=== PATIENT | male | born 2000 | race Asian ===

== ENCOUNTER 2019-02-21 14:02 | Emergency (ER) | payer MEDICAID ==
[~2019-02-21] VITALS: Ht 175.3 cm; Wt 70.3 kg
[2019-02-21 14:15] VITALS: BP_SYST 118
[2019-02-21 16:57] LABS: BASOPHILS # (AUTO) 0.1 K/uL (0.0-0.2); BASOPHILS % (AUTO) 0.5 % (0.0-2.0); EOSINOPHILS # (AUTO) 0.2 K/uL (0.0-0.4); EOSINOPHILS % (AUTO) 1.2 % (0.0-4.0); HEMATOCRIT 43.3 % (36-54); HEMOGLOBIN 14.5 g/dL (14.0-18.0); LYMPHOCYTES # (AUTO) 2.2 K/uL (1.0-5.5); LYMPHOCYTES % (AUTO) 13.1 % (20.5-51.5); MEAN CORPUSCULAR HEMOGLOBIN 31 pg (27-31); MEAN CORPUSCULAR HGB CONC 33 % (32-36); MEAN CORPUSCULAR VOLUME 93 fL (79.0-98.0); MONOCYTES # (AUTO) 1.8 K/uL (0.0-1.0); MONOCYTES % (AUTO) 10.3 % (1.7-9.3); NEUTROPHILS # (AUTO) 12.8 K/uL (1.8-7.7); NEUTROPHILS % (AUTO) 74.9 % (40.0-70.0); PLATELET COUNT (AUTO) 318 K/uL (130-430); RED BLOOD CELL COUNT(AUTO) 4.67 MIL/uL (4.2-6.2); RED CELL DISTRIBUTION WIDTH 12.8 % (9.0-15.0); WHITE BLOOD COUNT (AUTO) 17.1 K/uL (4.5-11.0)
--- NOTE | 2019-02-21 17:00 | NUR ---
Placed in room 8 . Placed on cardiac cath lab technologist, blood pressure machine and pulse oximeter. To gown for exam. Side rails up. Assumed care.
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
--- NOTE | 2019-02-21 17:15 | NUR ---
ER at bedside examining patient.
[2019-02-21 17:28] LABS: CALCIUM 9.2 mg/dL (8.4-11.0); CREATININE 1.13 mg/dL (0.55-1.30); POTASSIUM 4.1 mmol/L (3.5-5.1)
[2019-02-21 17:33] LABS: TOTAL BILIRUBIN 1.3 mg/dL (0.0-1.0)
[2019-02-21] MEDS ORDERED: LEVOFLOXACIN 500 MG/D5W 100 ML IV ONE (17:45)
[2019-02-21 17:51] LABS: PROTHROMBIN TIME 10.4 SECS (9.5-12.5)
--- NOTE | 2019-02-21 18:18 | NUR ---
# 20 gauge angiocath placed to right hand. Use of asceptic technique. Opsite placed over site. Blood return noted. Flushed with 10 cc of normal saline. No evidence of infiltration noted. Patient tolerated well.
--- NOTE | 2019-02-21 18:36 | NUR ---
Information received from Helen, nurse case manager. Patient information given. Will continue to follow up regarding bed assignment and transfer.
--- NOTE | 2019-02-21 19:05 | NUR ---
Report given to VENU Lynch.
[2019-02-21 20:16] LABS: BILIRUBIN,URINE 1+ (NEGATIVE); BLOOD, URINE NEGATIVE (NEGATIVE); CLARITY/URINE CLEAR (CLEAR); COLOR,URINE YELLOW (YELLOW); GLUCOSE,URINE NEGATIVE (NEGATIVE); KETONES,URINE 1+ (NEGATIVE); LEUKOCYTE ESTERASE ,URINE NEGATIVE (NEGATIVE); NITRITE, URINE NEGATIVE (NEGATIVE); PROTEIN URINE TRACE (NEGATIVE); UROBILINOGEN,URINE 0.2 (0.2-1.0)
[2019-02-21 20:46] LABS: BACTERIA,URINE None Seen /HPF (None Seen); MUCUS,URINE 1+ /LPF (None Seen); WBC,URINE 0-3 /HPF (0-3)
--- NOTE | 2019-02-21 20:57 | NUR ---
CM rn field case manager called and gave a bed 214 bed going to [facility]
--- NOTE | 2019-02-21 21:10 | NUR ---
S/W Juan José accepting Nurse at [facility], Pt going to Room 214 bed 1. Report given
--- NOTE | 2019-02-21 22:20 | NUR ---
VSS no s/s of acute distress. Resting on gurney rails up
[2019-02-21 23:23] VITALS: BP_SYST 118
--- NOTE | 2019-02-21 23:23 | NUR ---
Patient to be transferred to [facility] / room 214 Bed 1. Is being transferred due to higher level of care. Receiving facility has accepting physician and available space. ER physician has signed transfer form. Patient or responsible alliance party has agreed to transfer and signed form. Patient belongings inventoried and will be sent with patient. Copy of nursing notes, lab reports, EKG, Physicians Orders and X-rays to be sent with patient. Report called to Wolsey at receiving facility. [facility] ambulance service has been called for transfer.
== END 2019-02-21 23:23 | disposition short-term general hospital (02) ==
LOC: SED 14:02
DX: S27.2XXA Traumatic hemopneumothorax, initial encounter (principal); W19.XXXA Unspecified fall, initial encounter; Y93.K1 Activity, walking an animal; Y92.89 Other specified places as the place of occurrence of the external cause; Y99.8 Other external cause status
CPT/HCPCS: 36415; 71045; 71100; 80053; 81000; 83880; 84484; 85025; 85610; 87040; 93005; 96365; 99285; J1956

== ENCOUNTER 2021-04-16 17:41 | Emergency (ER) | payer MEDICAID ==
[~2021-04-16] VITALS: Ht 175.3 cm; Wt 65.8 kg
[2021-04-16 17:41] VITALS: BP_SYST 130
--- NOTE | 2021-04-16 17:41 | NUR ---
BROUGHT BACK TO BED #6 AND TRIAGED. REPORT GIVEN TO BECCA
--- NOTE | 2021-04-16 17:55 | NUR ---
ER Dr. KERN at bedside examining patient.
--- NOTE | 2021-04-16 18:18 | NUR ---
PT BIB MOM, C/O PAIN TO RIGHT HAND, REDNESS, SWELLING. PT STATED " I GOT BIT BY A DOG". PT IS A&OX4, AMBULATORY.
[2021-04-16 18:36] LABS: ANION GAP 8 (5-15); CALCIUM 9.3 mg/dL (8.4-11.0); CHLORIDE 102 mmol/L (98-107); CREATININE 0.89 mg/dL (0.55-1.30); GLUCOSE 124 mg/dL (70-99); POTASSIUM 3.7 mmol/L (3.5-5.1); SODIUM SERUM 138 mmol/L (136-145); UREA NITROGEN, BLOOD 17 mg/dL (8-21)
[2021-04-16 18:41] LABS: PROTHROMBIN TIME 10.4 SECS (9.5-12.5)
[2021-04-16 18:42] LABS: ALANINE AMINOTRANSFERASE 18 U/L (12-78); ALBUMIN 4.2 g/dL (3.4-4.8); ASPARTATE AMINOTRANSFERASE 10 U/L (10-37); TOTAL BILIRUBIN 0.7 mg/dL (0.0-1.0)
[2021-04-16 18:43] LABS: GFR AFRICAN AMERICAN 137 mL/min (>90)
[2021-04-16 19:16] LABS: BASOPHILS % (AUTO) 0.4 % (0.0-2.0); EOSINOPHILS # (AUTO) 0.1 K/uL (0.0-0.4); EOSINOPHILS % (AUTO) 0.5 % (0.0-4.0); HEMATOCRIT 49.2 % (36-54); HEMOGLOBIN 16.6 g/dL (14.0-18.0); LYMPHOCYTES # (AUTO) 1.6 K/uL (1.0-5.5); LYMPHOCYTES % (AUTO) 14.1 % (20.5-51.5); MEAN CORPUSCULAR HEMOGLOBIN 31 pg (27-31); MEAN CORPUSCULAR HGB CONC 34 % (32-36); MEAN CORPUSCULAR VOLUME 91 fL (79.0-98.0); MONOCYTES # (AUTO) 0.9 K/uL (0.0-1.0); MONOCYTES % (AUTO) 7.9 % (1.7-9.3); NEUTROPHILS # (AUTO) 8.8 K/uL (1.8-7.7); NEUTROPHILS % (AUTO) 77.1 % (40.0-70.0); PLATELET COUNT (AUTO) 246 K/uL (130-430); RED BLOOD CELL COUNT(AUTO) 5.38 MIL/uL (4.2-6.2); RED CELL DISTRIBUTION WIDTH 12.9 % (9.0-15.0); WHITE BLOOD COUNT (AUTO) 11.4 K/uL (4.8-10.8)
--- NOTE | 2021-04-16 19:16 | NUR ---
REPORT GIVEN TO VENU DENNEY FOR CONTINUING CARE
[2021-04-16 19:18] LABS: C-REACTIVE PROTEIN QUANT < 0.2 mg/dL (0-0.5)
[2021-04-16] MEDS ORDERED: AMPICILLIN SODIUM/SULBACTAM NA 3 GM VIAL ONE (20:14)
[2021-04-16] MEDS ORDERED: IBUP-1971 PO (20:25)
[2021-04-16] MEDS ORDERED: AMOX-423 PO (20:25)
[2021-04-16] MEDS: DIPH-TET-PERTUS Vaccine 0.5 ML VIAL (ADACEL) I.M. ONE (20:35)
[2021-04-16] MEDS: CLINDAMYCIN 600 mg/50mL D5W 50 ML IV ONE (20:38)
[2021-04-16] MEDS: BACITRACIN 1 GM OINT TP ONE (20:39)
[2021-04-16] MEDS: AMPICILLIN SODIUM/SULBACTAM NA 3 GM in NS 100 ML IV ONE (20:39)
[2021-04-16 21:05] VITALS: BP_SYST 130
--- NOTE | 2021-04-16 21:05 | NUR ---
Patient given written and verbal discharge instructions and verbalizes understanding. ER MD discussed with patient the results and treatment provided. Patient in stable condition. ID arm band removed. IV catheter removed intact and dressing applied, no active bleeding. Rx of Augmentin, Motrin given. Patient educated on pain management and to follow up with PMD. Pain Scale 0/10 Opportunity for questions provided and answered. Medication side effect fact sheet provided.
== END 2021-04-16 21:05 | disposition home or self-care (01) ==
LOC: SED 17:41
DX: S61.451A Open bite of right hand, initial encounter (principal); W54.0XXA Bitten by dog, initial encounter; Y93.89 Activity, other specified; Y92.89 Other specified places as the place of occurrence of the external cause; Y99.8 Other external cause status
CPT/HCPCS: 36415; 73120; 80053; 85025; 85610; 85730; 86140; 90471; 90715; 96365; 96375; 99284; J0295; J3490

== ENCOUNTER 2021-08-06 17:39 | Emergency (ER) | payer MEDICAID ==
[~2021-08-06] VITALS: Ht 175.3 cm; Wt 63.5 kg
[~2021-08-06 17:39] MED LIST: AMOX-423 PO; IBUP-1971 PO
[2021-08-06 18:06] VITALS: BP_SYST 131
--- NOTE | 2021-08-06 18:25 | NUR ---
Robbie aaron in [facility] - 08/06/21 at [email or web address] Ricardo evaluating patient in the [facility]
--- NOTE | 2021-08-06 18:27 | NUR ---
Patient to ER bed H1 to gown for evaluation. Side rails up.
--- NOTE | 2021-08-06 18:28 | NUR ---
Pt brought by self,A&Ox4, pt presents to ER with foreign object/plastic earpiece on R ear , no bleeding noted, skin pink and warm,cap refill<3.
--- NOTE | 2021-08-06 18:35 | NUR ---
Dr Ricardo evaluating patient in the [facility]
[2021-08-06 18:49] VITALS: BP_SYST 131
--- NOTE | 2021-08-06 18:49 | NUR ---
Patient given written and verbal discharge instructions and verbalizes understanding. ER MD discussed with patient the results and treatment provided. Patient in stable condition. ID arm band removed. No Rx given. Patient educated on pain management and to follow up with PMD. Pain Scale 0/10 . Opportunity for questions provided and answered. Medication side effect fact sheet provided.
== END 2021-08-06 18:49 | disposition home or self-care (01) ==
LOC: SED 17:39
DX: T16.1XXA Foreign body in right ear, initial encounter (principal); Z79.899 Other long term (current) drug therapy; X58.XXXA Exposure to other specified factors, initial encounter; Y93.89 Activity, other specified; Y92.89 Other specified places as the place of occurrence of the external cause; Y99.8 Other external cause status
CPT/HCPCS: 99284